=== PATIENT | male | born 2005 | race Caucasian/White ===

== ENCOUNTER 2023-09-29 10:48 | Day surgery (SDC) | payer BC ==
[2023-09-29] MEDS ORDERED: fentaNYL PF 100 MCG/2 ML SYRINGE ONE (11:00)
[2023-09-29] MEDS ORDERED: PROPOFOL 20 ML ONE (11:01)
[2023-09-29] MEDS ORDERED: Lidocaine 1% PF 5 ML VIAL ONE (11:06)
[2023-09-29] MEDS ORDERED: Oxymetazoline HCl 0.05% (30 ML BOT) ONE (11:23)
[2023-09-29] MEDS ORDERED: EPINEPHrine 1 MG/ML VIAL ONE (11:24)
[2023-09-29] MEDS ORDERED: Lidocaine 1% (PF) 30 ML VIAL ONE (11:24)
[2023-09-29] MEDS ORDERED: Ondansetron PF 4 MG/2 ML Vial ONE (11:50)
[2023-09-29] MEDS ORDERED: Dexamethasone 20 MG/5 ML VIAL ONE (11:50)
[2023-09-29] MEDS ORDERED: Metoclopramide HCl 10 MG (2 mL) VIAL ONE (11:50)
[2023-09-29] MEDS ORDERED: SUCCINYLCHOLINE/SOD CL,ISO/PF 200 MG/10 ML SYRINGE FS ONE (11:51)
[2023-09-29] MEDS ORDERED: Bacitracin Zinc Ointment 30 gm TUBE ONE (11:53)
[2023-09-29] MEDS ORDERED: fentaNYL 50 mcg/mL 1 mL Vial ONE ×2 (12:39→12:52)
[2023-09-29] MEDS ORDERED: Hydrocodone-Acetamin 15 ML UDCUP ONE (13:49)
== END 2023-09-29 15:28 | disposition home or self-care (01) ==
LOC: SDC 10:48
PROVIDERS: ATTEND Specialist
PROC: 0NSB3ZZ Reposition Nasal Bone, Percutaneous Approach (ICD-10-PCS; principal; 2023-09-29)
PROC: 09TL8ZZ Resection of Nasal Turbinate, Via Natural or Artificial Opening Endoscopic (ICD-10-PCS; principal; 2023-09-29)
DX: J34.3 Hypertrophy of nasal turbinates (principal); S02.2XXA Fracture of nasal bones, initial encounter for closed fracture; S01.21XA Laceration without foreign body of nose, initial encounter; R04.0 Epistaxis; J34.2 Deviated nasal septum; X58.XXXA Exposure to other specified factors, initial encounter; Y93.64 Activity, baseball
CPT/HCPCS: 36416; J0171; J1100; J2001; J2405; J2704; J2765; J3010